=== PATIENT | female | born 1960 | race Caucasian/White ===

== ENCOUNTER 2022-10-04 09:06 | Outpatient (CLI) | payer MEDICAID, SELFPAY ==
--- NOTE | 2022-10-04 09:32 | MR_ITS ---
WS: [id number] MRI THORACIC SPINE noncontrast. HISTORY: CHRONIC THORACIC BACK PAIN, pain down LEFT thigh and LEFT buttock. COMPARISON: None available. TECHNIQUE: Multiplanar sequences are performed in sagittal and axial planes. Mild long curvature thoracic spine to the RIGHT. No fractures or marrow edema. Slight disc space narr owing throughout the thoracic spine. T1-2: Normal. T2-3: Normal. T3-4: Normal. T4-5: Normal. T5-6: Normal. T6-7: Normal. T7-8: Bilateral paracentral disc protrusions with the RIGHT being slightly greater in size than the LEFT. Very slight contact upon the cervical cord with mild deformity on the RIGHT. No significant raegan nosis. T8-9: Mild facet arthritis. No stenosis. T9-10: Mild bilateral facet arthritis and foraminal narrowing. T10-11: Mild bilateral facet arthritis. No stenosis. T11-12: Normal. Paravertebral soft tissues are normal. MR/MR thoracic spin wo con* [id number] IMPRESSION: 1. No cervical spine fracture or high-grade stenosis. 2. T7-8: Bilateral paracentral disc protrusions, RIGHT greater than LEFT. The RIGHT paracentral disc protrusion is contacting and displacing the RIGHT thorac ic cord. No high-grade stenosis. 3. Mild facet joint arthritis at T8-9 through T10-11. 4. No cord syrinx.
== END 2022-10-04 09:07 | disposition home or self-care (01) ==
PROVIDERS: PCP Family Medicine; Visit Provider Family Medicine
DX: M51.24 Other intervertebral disc displacement, thoracic region (principal); M47.814 Spondylosis without myelopathy or radiculopathy, thoracic region; G89.29 Other chronic pain; M79.652 Pain in left thigh
CPT/HCPCS: 72146

== ENCOUNTER 2024-12-14 06:30 | Outpatient (RCR) | payer MEDICAID, SELFPAY | END 2025-01-13 23:59 | disposition home or self-care (01) | LOC: GPT 06:30 | PROVIDERS: PCP Family Medicine; Visit Provider Family Medicine | DX: M54.50 Low back pain, unspecified (principal); G89.29 Other chronic pain | CPT/HCPCS: 97110; 97161 ==

== ENCOUNTER 2025-01-14 05:00 | Outpatient (RCR) | payer MEDICAID, SELFPAY | END 2025-02-12 23:59 | disposition home or self-care (01) | LOC: GPT 05:00 | PROVIDERS: PCP Family Medicine; Visit Provider Family Medicine | DX: M54.50 Low back pain, unspecified (principal); G89.29 Other chronic pain | CPT/HCPCS: 97110; 97530 ==